=== PATIENT | female | born 1980 | race Caucasian/White ===

== ENCOUNTER 2023-04-28 22:04 | Emergency (ER) | payer OTHER, SELFPAY ==
--- NOTE | ~2023-04-28 | CT_ITS ---
EXAMINATION: CT HEAD WITHOUT CONTRAST CLINICAL INFORMATION: Headache. COMPARISON: None available. TECHNIQUE: Contiguous axial imaging was performed from the skull base to vertex without intravenous administration of contrast. This CT examination was performed using dose optimization techniques as appropriate, variously including the following: *Automated exposure control *Adjustment of mA and/or kV according to patient size (this includes techniques or standardized protocols for targeted exams where dose is matched to indication/reason for exam; i.e. extremities or head) *Use of iterative reconstruction technique DLP: 705 mGy-cm FINDINGS: The lateral, third and fourth ventricles are normally outlined. The cortical sulci and basal cisterns are normally outlined as well. There is no acute territorial defect, hemorrhage or midline shift. The extra-axial spaces are unremarkable. Calvarium: Intact. Maxillofacial sinuses and mastoids: Clear as visualized. CT/CT head/brain wo IV con IMPRESSION: No acute intracranial pathology.
[2023-04-28 22:09] VITALS: BP 118/72; PULSE 61; RESP 14; TEMP 36.6; O2SAT 99; BMI 25.8
--- NOTE | 2023-04-29 00:17 | ED_ITS ---
HPI - Headache General Chief Complaint: Fall Stated Complaint: Fall Time Seen by Provider: 04/28/23 22:17 Source: patient Mode of arrival: ambulatory Limitations: no limitations History of Present Illness HPI Narrative: 42-year-old female with a history of depression, bipolar disorder who presents emergency department for evaluation of headache times 15 days. Patient states that on 04/12/2023 she slipped in the shower and struck the left occipital parietal her head on a handicap railing. She has not certain if she had any loss of consciousness. She states that since that time she has been having daily, intermittent headaches. She states she has been experiencing 2 different sensations. She has a pressure-like sensation in the left side of her head and the area where she struck her head which radiates to the right side of the head. She also has an ?electric zapping ?sensation that goes from temporal to temporal area. She states that the pressure-like sensation can last several hours but the zapping sensation will last 30 seconds. She states that today she had at least 3 or 4 episodes of headaches therefore she came to the emergency department for evaluation. Patient denied any associated numbness, weakness, nausea, vomiting, loss of bowel or bladder control. Patient took ibuprofen with no relief for pain. Review of systems was positive for rhinorrhea. She denied fever, chills, sore throat, cough, chest pain, shortness of breath Related Data Previous Rx's Medication Instructions Recorded metoclopramide HCl 10 mg tablet 10 mg PO Q6H PRN nausea and 04/29/23 (Reglan) vomiting #14 tabs Allergies Allergy/AdvReac Type Severity Reaction Status Date / Time No Known Allergies Allergy Verified 04/28/23 22:08 Review of Systems Review of Systems: Yes all other systems are reviewed and are negative [facility] Past Medical History [facility] Narrative: Past medical history: Depression, bipolar disorder. Social history: She d enies tobacco use. She drinks beer and wine 3 times a week. She occasionally smokes marijuana. Social History Social History Advance Directives: No Advance Directives Information Provided: No Physical Exam Vital Signs: Vital Signs: Last Vital Signs Temp 97.9 F 04/28/23 22:09 Pulse 61 04/28/23 22:09 Resp 14 04/28/23 22:09 BP 118/72 04/28/23 22:09 Pulse Ox 99 04/28/23 22:09 O2 Del Method Room Air 04/28/23 22:09 BMI result Body Mass Index 25.8 Vital signs were normal Exam: General: Awake, alert in no distress Head: Normocephalic, patient does have tenderness palpation of her left occipital prior area with no obvious hematoma. EENT: PERRL, Lids normal, sclera normal, conjunctiva normal, nose normal , ears normal, throat without erythema or exudates Neck: Supple, no adenopathy Lung: breath sounds symmetric, no wheezing, rales or rhonchi Chest: symmetric movement, nontender Heart: regular rate and rhythm, normal S1, S2 no murmurs or rubs Abdomen: soft, non-tender, nondistended, normal bowel sounds Back: no vertebral tenderness, no CVAT Extremities: no deformities, moves all extremities symmetrically Neuro: Awake, alert, oriented, normal speech, cranial nerves intact, moves all extremities symmetrically Psych: Pleasant, cooperative Medical Decision Making Medical Decision Making MDM Narrative: 42-year-old female with a history of depression, bipolar disorder who presents emergency department for evaluation of headache times 15 days. Patient states that on 04/12/2023 she slipped in the shower and struck left occipital parietal area of her head on a handicap railing. She has not certain if she had any loss of consciousness. She states that since that time she has been having daily, intermittent headaches with a pressure-like component and a ?electric zapping like component, 3-4 episodes per day with no concerning associated symptoms. Vital signs were normal. Exam did reveal tenderness palpation of the left occipital parietal area of her head. Neuro exam was nonfocal Differential diagnosis: ?Includes but is not limited to skull fracture, intracranial bleed, subdural hematoma, concussion/TBI, headache Following evaluation was ordered: CT scan of the brain without IV contrast Course: 00:24 CT scan of the brain was interpreted by the radiologist as no acute findings which is reassuring Patient's symptoms are consistent with postconcussion syndrome/TBI. Patient was started on the following regimen q.6 hours as needed for headaches: Reglan 10 mg, Benadryl 50 mg and Excedrin migraine 2 tablets She was given printed and verbal instructions and discharged home. Admission/Observation Consideration of admission/observation: Escalation of care including admission/observation considered Prescription Management I considered prescription management with: Pain Medication (Reglan for migraine- like headache) Chronic Conditions Patient?s care impacted by: Other (Bipolar disorder) Discharge Plan Discharge Clinical Impression: Post-concussion syndrome, Headaches due to old head injury Patient Disposition: Home, Self-Care Instructions: Post Concussion Syndrome (ED) Additional Instructions: The CT scan of your brain revealed no skull fracture bleeding in the brain which is reassuring. Your symptoms are caused by a concussion, this is called postconcussion s yndrome. For your headache that are [id number]-[id number], you can take Excedrin migraine 2 tabs every 6 hours as needed . This medication will not make you sleepy and you can work while taking these medications. For headaches that are moderate to severe, I want you to take the following 3 medications together every 6 hours as needed . Reglan (metoclopramide) in 10 mg, 1 pill Benadryl 25 mg, 2 pills Excedrin migraine, 2 pills. After you take these medications, lie down in a dark quiet room and try to fall asleep. ?These medications will make you sleepy, do not drive or work after taking these medications. Follow-up with your doctor for re-evaluation in 3-7 days Please return to the emergency department if your symptoms get worse or if you develop any symptoms that are concerning to you. Prescriptions: New metoclopramide HCl [Reglan] 10 mg tablet 10 mg PO Q6H PRN (Reason: nausea and vomiting) Qty: 14 0RF
== END 2023-04-29 01:30 | disposition home or self-care (01) ==
PROVIDERS: Emergency Provider Emergency Medicine Emergency Medical Services
DX: G44.309 Post-traumatic headache, unspecified, not intractable (principal); F07.81 Postconcussional syndrome
CPT/HCPCS: 70450; 99282; 99284